=== PATIENT | male | born 1980 | race Caucasian/White ===

== ENCOUNTER → 2018-02-03 | Outpatient (CLI) | payer MEDICAID | LOC: FIMAGING 17:53 | PROVIDERS: ATTEND Psychiatry & Neurology Neurology | DX: M50.20 Other cervical disc displacement, unspecified cervical region (principal) ==

== ENCOUNTER 2018-09-01 14:16 | Emergency (ER) | payer MEDICAID, OTHER ==
--- NOTE | 2018-09-01 15:16 | EDPHY ---
H & P Stated Complaint: RLQ pain since thia AM. Denies constipation/trauma. Time Seen by Provider: 09/01/18 14:51 HPI/ROS: CHIEF COMPLAINT: Right lower quadrant pain HISTORY OF PRESENT ILLNESS: 38-year-old male presents with right lower quadrant pain. Onset of right upper quadrant pain 1 week ago. The pain waxed and wane and now has subsided. He developed right lower quadrant pain this morning. The pain comes and goes and he currently is pain-free. No associated urinary symptoms, vomiting, diarrhea or previous similar symptoms. REVIEW OF SYSTEMS: complete 10 point ROS reviewed and is negative except for the noted elements in the HPI - Personal History Current Tetanus/Diphtheria Vaccine: Unsure - Medical/Surgical History Hx Asthma: No Hx Chronic Respiratory Disease: No Hx Diabetes: No Hx Cardiac Disease: No Hx Renal Disease: No Hx Cirrhosis: No Hx Alcoholism: No Hx HIV/AIDS: No Other PMH: cholecystectomy - Social History Smoking Status: Never smoked - Physical Exam Exam: General Appearance: Alert, pleasant Eyes: Pupils equal and round, no conjunctival pallor ENT, Mouth: Mucous membranes moist Neck: Normal inspection Respiratory: Lungs are clear to auscultation Cardiovascular: Regular rate and rhythm Gastrointestinal: Abdomen is soft, mild right lower quadrant tenderness Neurological: A&O, nonfocal, normal gait Skin: Warm and dry, no rash Extremities: Nontender, no pedal edema Psychiatric: Mood and affect normal Constitutional: Initial Vital Signs Heart Rate 69 09/01/18 14:32 Respiratory Rate 18 09/01/18 14:32 Blood Pressure 132/82 H 09/01/18 14:32 O2 Sat (%) 97 09/01/18 14:32 O2 Delivery Mode Room Air O2 (L/minute) 36.7 Allergies/Adverse Reactions: kiwi Allergy (Verified 09/01/18 14:32) TONGUE SWELLING/TINGLING FEELING Home Medications: Medication Instructions Recorded Ondansetron Odt [Zofran Odt 4 mg 4 mg PO Q4 PRN #10 tab 07/18/16 (*)] Medical Decision Making - Diagnostics Imaging Results: Abdomen/Pelvis CT 09/01/18 15:17 Impression: Negative. No source for right sided pain identified. Results discussed with Dr. Rico at 4:09 PM. General information for patients regarding this examination can be found at [email or web address]. If you have questions or comments about this report, please contact me at [phone] (hospital) or [phone] (cell). Imaging: Discussed imaging studies w/ legal adviser Radiologist ED Course/Re-evaluation: This patient presents with right-sided abdominal pain. He is currently pain- free and abdominal exam is benign. Clinical presentation most concerning for renal colic. CT scan of the abdomen pelvis obtained and is unremarkable. Results discussed with the patient. He remains pain-free. Abdominal exam is unchanged. Toradol 30 mg IV given prior to discharge. Abdominal pain precautions given. Differential Diagnosis: Differential diagnosis includes though it is not limited to appendicitis, cholecystitis, diverticulitis, pyelonephritis, bowel perforation, small bowel obstruction. - Data Points Laboratory Results: Laboratory Results 09/01/18 15:15 09/01/18 15:15 Medications Given: Discontinued Medications Sodium Chloride (Ns) 1,000 mls @ 0 mls/hr IV ONCE ONE; Wide Open PRN Reason: Protocol Stop: 09/01/18 15:27 Last Admin: 09/01/18 15:31 Dose: 1,000 mls Ketorolac Tromethamine (Toradol) 30 mg IVP EDNOW ONE Stop: 09/01/18 16:20 Last Admin: 09/01/18 16:27 Dose: 30 mg Departure - Departure Disposition: Home, Routine, Self-Care Clinical Impression: Abdominal pain Qualifiers: Abdominal location: right lower quadrant Qualified Code(s): R10.31 - Right lower quadrant pain Condition: Good Instructions: Acute Abdominal Pain (ED) Additional Instructions: Sometimes we are unable to diagnose an obvious cause of abdominal pain in the Emergency Department. Based upon our evaluation today, we see no obvious explanation for your pain. Because more serious conditions can be difficult to diagnose early in the course of their presentation, we ask that you return to the Emergency Department in 12-24 hours for a recheck if you are still having pain. This is necessary to exclude the development of a more serious condition such as appendicitis or other intra-abdominal emergency. In the event your pain markedly increases before that time or you develop intractable vomiting or fever return to the Emergency Department immediately. Referrals: Rudy Stevenson MD [Primary Care Provider] - As per Instructions
[2018-09-01] MEDS ORDERED: NS 1,000 ML IV ONE (15:26)
[2018-09-01 15:29] LABS: PLATELET COUNT 166 10^3/uL (150-400)
[2018-09-01] MEDS ORDERED: KETOROLAC 15 MG/1 ML SDV IVP ONE (16:19)
[2018-09-01 16:41] VITALS: BP 137/94
== END 2018-09-01 16:38 | disposition home or self-care (01) ==
DX: R10.31 Right lower quadrant pain (principal); E86.9 Volume depletion, unspecified; Z90.49 Acquired absence of other specified parts of digestive tract
CPT/HCPCS: 96374; J1885

== ENCOUNTER 2018-09-04 10:08 | Emergency (ER) | payer OTHER ==
--- NOTE | 2018-09-04 10:33 | EDPHY ---
H & P Time Seen by Provider: 09/04/18 10:31 HPI/ROS: Chief complaint. Chest pain HPI. Patient is a 38-year-old male with left chest pain off and on for 1 month. This morning he woke up with some numbness sensation in the left arm and left shoulder blade. 2 weeks ago he had posterior back discomfort saw chiropractor was told that he had a rib out. After adjustment it was better. He has had recent reflux. He describes his left chest discomfort today is both dull and sharp at times. No shortness of breath. No fever cough. No change in his discomfort with breathing, exertion or position. He ran upstairs this morning to see if it bothered his heart he had no increase or change in his symptoms with climbing stairs. Patient was seen in our emergency department 3 days ago for right lower quadrant abdominal pain. Workup was normal at that time. No evidence for appendicitis. ROS 10 systems were reviewed and negative with the exception of the elements mentioned in the history of present illness Past Medical/Surgical History: Cholecystectomy Denies diabetes hypertension No family history of early coronary artery disease Social History: , nonsmoker, no alcohol Smoking Status: Never smoked Physical Exam: General Appearance: Alert pleasant well-developed male mild distress vital signs are stable Eyes: Pupils equal and round no pallor or injection. ENT, Mouth: Mucous membranes are moist. Respiratory: There are no retractions, lungs are clear to auscultation. Cardiovascular: Regular rate and rhythm. Gastrointestinal: Abdomen is soft and nontender, no masses, bowel sounds normal. Neurological: Awake and alert, sensory and motor exams grossly normal. Skin: Warm and dry, no rashes. Musculoskeletal: Neck is supple nontender. Extremities symmetrical, full range of motion. Psychiatric: Patient is oriented X 3, there is no agitation. Constitutional: Initial Vital Signs Temperature (C) 36.6 C 09/04/18 10:13 Heart Rate 82 09/04/18 10:13 Respiratory Rate 18 09/04/18 10:13 Blood Pressure 162/82 H 09/04/18 10:13 O2 Sat (%) 97 09/04/18 10:13 O2 Delivery Mode Room Air Allergies/Adverse Reactions: kiwi Allergy (Verified 09/04/18 10:17) TONGUE SWELLING/TINGLING FEELING Home Medications: Medication Instructions Recorded Ondansetron Odt [Zofran Odt 4 mg 4 mg PO Q4 PRN #10 tab 07/18/16 (*)] Medical Decision Making - Diagnostics EKG Interpretation: EKG interpreted by me shows normal sinus rhythm normal interval and axis. QRS is normal there is no significant ST elevation or depression. No arrhythmia. The rate is 64 Repeat EKG interpreted by me shows normal sinus rhythm normal interval and axis. QRS is normal there is no significant ST elevation or depression. No arrhythmia. The rate is 66 Imaging Results: Imaging Impressions Chest X-Ray 09/04/18 10:44 Impression: 1. No acute pulmonary disease. 2. Consider chest two views when the patient's medical condition permits. Chest x-ray interpreted by me is normal Procedures: IV normal saline, monitor ED Course/Re-evaluation: Re-evaluation 11:50 a.m.. Patient is stable. He and I discussed imaging and lab results. We discussed treatment plan including recommendation for repeat troponin and EKG. He expresses understanding and agreement Repeat troponin is normal Differential Diagnosis: Patient's heart score is 0. He gets a score for history, EKG, risk factors, age , negative troponin x2 I considered acute coronary syndrome, pneumonia. Perc score negative for risk for PE - Data Points Laboratory Results: Laboratory Results 09/04/18 10:30 09/04/18 10:30 09/04/18 09/04/18 09/04/18 12:11 10:36 10:30 WBC RBC Hgb Hct MCV MCH MCHC RDW Plt Count MPV Neut % (Auto) Lymph % (Auto) Carbon % (Auto) Eos % (Auto) Baso % (Auto) Nucleat RBC Rel Count Absolute Neuts (auto) Absolute Lymphs (auto) Absolute Monos (auto) Absolute Eos (auto) Absolute Basos (auto) Absolute Nucleated RBC Immature Gran % Immature Gran # Sodium 143 mEq/L mEq/L (135-145) Potassium 4.0 mEq/L mEq/L (3.5-5.2) Chloride 111 mEq/L H mEq/L (97-110) Carbon Dioxide 23 mEq/l mEq/l (22-31) Anion Gap 9 mEq/L mEq/L (6-14) BUN 14 mg/dL mg/dL (7-23) Creatinine 1.1 mg/dL mg/dL (0.7-1.3) Estimated GFR > 60 Glucose 96 mg/dL mg/dL (70-100) Calcium 9.4 mg/dL mg/dL (8.5-10.4) Total Bilirubin 0.9 mg/dL mg/dL (0.1-1.4) Conjugated Bilirubin 0.3 mg/dL mg/dL (0.0-0.5) Unconjugated Bilirubin 0.6 mg/dL mg/dL (0.0-1.1) AST 30 IU/L IU/L (17-59) ALT 40 IU/L IU/L (21-72) Alkaline Phosphatase 52 IU/L IU/L (38-126) POC Troponin I 0.00 ng/mL ng/mL 0.00 ng/mL ng/mL (0.00-0.08) (0.00-0.08) Total Protein 7.4 g/dL g/dL (6.3-8.2) Albumin 4.7 g/dL g/dL (3.5-5.0) Lipase 119 IU/L IU/L (23-300) 09/04/18 10:30 WBC 6.97 10^3/uL 10^3/uL (3.80-9.50) RBC 5.19 10^6/uL 10^6/uL (4.40-6.38) Hgb 16.9 g/dL g/dL (13.7-17.5) Hct 47.7 % % (40.0-51.0) MCV 91.9 fL fL (81.5-99.8) MCH 32.6 pg pg (27.9-34.1) MCHC 35.4 g/dL g/dL (32.4-36.7) RDW 12.4 % % (11.5-15.2) Plt Count 174 10^3/uL 10^3/uL (150-400) MPV 8.8 fL fL (8.7-11.7) Neut % (Auto) 48.6 % % (39.3-74.2) Lymph % (Auto) 28.7 % % (15.0-45.0) Carbon % (Auto) 5.7 % % (4.5-13.0) Eos % (Auto) 16.1 % H % (0.6-7.6) Baso % (Auto) 0.6 % % (0.3-1.7) Nucleat RBC Rel Count 0.0 % % (0.0-0.2) Absolute Neuts (auto) 3.39 10^3/uL 10^3/uL (1.70-6.50) Absolute Lymphs (auto) 2.00 10^3/uL 10^3/uL (1.00-3.00) Absolute Monos (auto) 0.40 10^3/uL 10^3/uL (0.30-0.80) Absolute Eos (auto) 1.12 10^3/uL H 10^3/uL (0.03-0.40) Absolute Basos (auto) 0.04 10^3/uL 10^3/uL (0.02-0.10) Absolute Nucleated RBC 0.00 10^3/uL 10^3/uL (0-0.01) Immature Gran % 0.3 % % (0.0-1.1) Immature Gran # 0.02 10^3/uL 10^3/uL (0.00-0.10) Sodium Potassium Chloride Carbon Dioxide Anion Gap BUN Creatinine Estimated GFR Glucose Calcium Total Bilirubin Conjugated Bilirubin Unconjugated Bilirubin AST ALT Alkaline Phosphatase POC Troponin I Total Protein Albumin Lipase Point of Care Test Results: Chemistry 09/04/18 09/04/18 12:11 10:36 POC Troponin I 0.00 ng/mL ng/mL 0.00 ng/mL ng/mL (0.00-0.08) (0.00-0.08) Departure - Departure Disposition: Home, Routine, Self-Care Clinical Impression: Chest pain Qualifiers: Chest pain type: unspecified Qualified Code(s): R07.9 - Chest pain, unspecified Condition: Good Instructions: Chest Pain (ED) Additional Instructions: Evaluation of your heart appears normal today. I would like you to follow up with Cardiology for further evaluation. Please call them today to be seen in the next 2-3 days Easy activity. Return for worsening chest discomfort or trouble breathing. Referrals: Valdemar Melgar MD [Medical Doctor] - 2-3 days, call for appt. Rudy Stevenson MD [Primary Care Provider] - 1-2 days without fail
[2018-09-04 11:10] LABS: PLATELET COUNT 174 10^3/uL (150-400)
[2018-09-04 12:45] VITALS: BP 137/86
--- NOTE | 2018-09-04 15:28 | CPEKG ---
Test Reason : OPEN Blood Pressure : / mmHG Vent. Rate : 066 BPM Atrial Rate : 066 BPM P-R Int : 167 ms QRS Dur : 075 ms QT Int : 372 ms P-R-T Axes : 001 022 036 degrees QTc Int : [address] elev, probable normal early repol pattern Confirmed by Joshua Powell ([id number]) on 09/04/2018 3:28:21 PM Referred By: JOSHUA POWELL Confirmed By:Joshua Powell
--- NOTE | 2018-09-04 15:29 | CPEKG ---
Test Reason : OPEN Blood Pressure : / mmHG Vent. Rate : 064 BPM Atrial Rate : 064 BPM P-R Int : 138 ms QRS Dur : 084 ms QT Int : 383 ms P-R-T Axes : 005 038 041 degrees QTc Int : [address] elev, probable normal early repol pattern Confirmed by Raj Powell ([id number]) on 09/04/2018 3:28:59 PM Referred By: PHYSICIAN ED Confirmed By:Raj Powell
== END 2018-09-04 12:45 | disposition home or self-care (01) ==
DX: R07.9 Chest pain, unspecified (principal)
CPT/HCPCS: 84484-ER